=== PATIENT | female | born 1940 | race Caucasian/White ===

== ENCOUNTER → 2017-10-25 | Outpatient (CLI) | payer MEDICARE | END | disposition home or self-care (01) | LOC: US 12:25 | DX: I77.1 Stricture of artery (principal); I70.90 Unspecified atherosclerosis; E11.9 Type 2 diabetes mellitus without complications; I10 Essential (primary) hypertension; Z87.891 Personal history of nicotine dependence ==

== ENCOUNTER → 2019-02-06 | Outpatient (CLI) | payer MEDICARE ==
[~2019-02-06] MED LIST: ALEVE220 MG PO; ASPIR LOW81 MG PO; B12,B-12,B 12500 MC1 PO; CETIRIZINE10 MG PO; CIPRO500 MG PO; GLUCOPHAGE500 M1 PO; Glimepiride1 MG PO; HYDR25T PO; LOPERAMIDE HCL2 MG PO; METOPROLOL SUCC50 M1 PO; OMEPRAZOLE10 MG PO; ONDANSETRON4 M1 PO; POTASSIUM CHLO10 ME4 PO; SIMVASTATIN40 MG PO; SYMB160 INH; TOPROL XL25 MG PO; VENTOLIN,PR2 MG/5 ML PO; Vitamin D PO
== END | disposition home or self-care (01) ==
LOC: RESCLI 00:07
DX: Z09 Encounter for follow-up examination after completed treatment for conditions other than malignant neoplasm (principal); R91.8 Other nonspecific abnormal finding of lung field; E78.5 Hyperlipidemia, unspecified; J44.9 Chronic obstructive pulmonary disease, unspecified; K21.9 Gastro-esophageal reflux disease without esophagitis; I10 Essential (primary) hypertension; D53.9 Nutritional anemia, unspecified; E53.8 Deficiency of other specified B group vitamins; E55.9 Vitamin D deficiency, unspecified; E11.40 Type 2 diabetes mellitus with diabetic neuropathy, unspecified; J30.2 Other seasonal allergic rhinitis; G89.29 Other chronic pain; F17.200 Nicotine dependence, unspecified, uncomplicated; Z71.6 Tobacco abuse counseling; Z85.118 Personal history of other malignant neoplasm of bronchus and lung; Z76.89 Persons encountering health services in other specified circumstances; Z79.82 Long term (current) use of aspirin; Z79.899 Other long term (current) drug therapy; Z79.84 Long term (current) use of oral hypoglycemic drugs

== ENCOUNTER 2019-04-08 19:40 | Inpatient (IN) | payer MEDICARE ==
[~2019-04-08] VITALS: Ht 152.4 cm; Wt 42.8 kg
[2019-04-08] VITALS (10 sets, daily range): BP systolic 147–183; BP diastolic 79–120
--- NOTE | ~2019-04-08 | EKG ---
[place], [place] ELECTROCARDIOGRAM REPORT NAME: TAL GAVIN UNIT #: [id number] ROOM: 406 DOCTOR: RANCHO DRAFT REPORT BIRTHDATE: [birth year] [facility] Test Date: 2019-04-08 Test Time: 19:44:31 Pat Name: TAL GAVIN Department: Room: 406 Gender: F Fish Farm Laborer: : 1940 Requested By: SOLIS MIRZA Order Number: [id number] Reading MD: Thom Humphries Measurements Intervals [place] Rate: 116 P: 74 WV: 139 QRS: 41 QRSD: 107 T: 76 QT: 339 QTc: 471 Interpretive Statements Sinus tachycardia Probable left atrial enlargement Borderline T wave abnormalities Compared to ECG 03/09/2019 16:01:41 T-wave abnormality now present Atrial premature complex(es) no longer present ST (T wave) deviation no longer present Myocardial infarct finding no longer present Electronically Signed On 04-10-2019 12:05:23 PDT by Thom Humphries CM:EKGRPT:ELECTROCARDIOGRAM REPORT [id number] SOLIS TARANGO DRAFT REPORT SOLIS MIRZA DO
--- NOTE | ~2019-04-08 | EKG ---
[place], [place] ELECTROCARDIOGRAM REPORT NAME: TAL GAVIN UNIT #: [id number] ROOM: 406 DOCTOR: RANCHO DRAFT REPORT BIRTHDATE: [birth year] [facility] Test Date: 2019-04-09 Test Time: 01:32:37 Pat Name: TAL GAVIN Department: Room: 406 Gender: F Serology Teacher: Linn Ball : 1940 Requested By: SOLIS MIRZA Order Number: [id number] Reading MD: Thom Humphries Measurements Intervals [place] Rate: 98 P: 60 DC: 145 QRS: 20 QRSD: 72 T: 62 QT: 372 QTc: 476 Interpretive Statements Sinus rhythm Borderline T wave abnormalities Baseline wander in lead(s) V4 Compared to ECG 03/09/2019 16:01:41 T-wave abnormality now present Sinus tachycardia no longer present Atrial premature complex(es) no longer present ST (T wave) deviation no longer present Myocardial infarct finding no longer present Electronically Signed On 04-10-2019 12:08:22 PDT by Thom Humphries CM:EKGRPT:ELECTROCARDIOGRAM REPORT [id number] 1208 SOLIS TARANGO DRAFT REPORT SOLIS MIRZA DO
--- NOTE | ~2019-04-08 | EKG ---
[place], [place] ELECTROCARDIOGRAM REPORT NAME: TAL GAVIN UNIT #: [id number] ROOM: 406 DOCTOR: RANCHO DRAFT REPORT BIRTHDATE: [birth year] [facility] Test Date: 2019-04-08 Test Time: 21:52:12 Pat Name: TAL GAVIN Department: Room: 406 Gender: F Dairy Quality Assurance Officer: ANTHONY : 1940 Requested By: SOLIS MIRZA Order Number: [id number] Reading MD: Thom Humphries Measurements Intervals [place] Rate: 102 P: 63 VT: 144 QRS: 22 QRSD: 72 T: 66 QT: 357 QTc: 466 Interpretive Statements Sinus tachycardia Borderline T wave abnormalities Baseline wander in lead(s) I,III,aVL,aVF,V1,V2 Compared to ECG 03/09/2019 16:01:41 T-wave abnormality now present Atrial premature complex(es) no longer present ST (T wave) deviation no longer present Myocardial infarct finding no longer present Electronically Signed On 04-10-2019 12:07:54 PDT by Thom Humphries CM:EKGRPT:ELECTROCARDIOGRAM REPORT 1207 SOLIS TARANGO DRAFT REPORT SOLIS MIRZA DO
[2019-04-08 20:14] LABS: BASO # 0.1 10*3/uL (0.0-0.1); BASO % 0.7 % (0.0-1.0); HEMATOCRIT 39.3 % (37.0-47.0); HEMOGLOBIN 12.3 g/dl (12.0-16.0); LYMPH # 0.9 10*3/uL (1.3-4.4); LYMPH % 9.6 % (27.0-41.0); MEAN CELL VOLUME 95.4 fl (81.0-99.0); MEAN CORPUSCULAR HGB 29.9 pg (27.0-31.0); MEAN CORPUSCULAR HGB CONC 31.3 g/dl (33.0-37.0); MEAN PLATELET VOLUME 10.7 fl (9.6-12.3); MONO # 0.7 10*3/uL (0.1-1.0); MONO % 7.5 % (3.0-9.0); NEUT # 7.5 10*3/uL (2.3-7.9); NEUT % 81.7 % (47.0-73.0); PLATELET COUNT AUTOMATED 408 10*3/uL (130-400); RED BLOOD COUNT 4.12 10*6/uL (4.10-5.10); RED CELL DISTRI WIDTH 16.1 % (0-14.5); WHITE BLOOD COUNT 9.2 10*3/uL (4.8-10.8)
[2019-04-08 20:24] LABS: ACT PARTIAL THROMBO TIME 32.8 SECONDS (20.0-32.1); INTERNATIONAL NORM RATIO 1.1 (2.0-3.5)
[2019-04-08 20:43] LABS: ALBUMIN 2.9 gm/dl (3.1-4.5); CREATININE 1.38 mg/dL (0.55-1.02); POTASSIUM 4.4 mmol/L (3.5-5.1); TOTAL PROTEIN 7.9 gm/dL (6.4-8.2)
[2019-04-08 20:44] LABS: TROPONIN I 0.022 ng/ml (<0.045)
--- NOTE | 2019-04-08 22:21 | NUR ---
PT DENIES ANY OPEN WOUNDS OR SORES.
--- NOTE | 2019-04-08 22:37 | NUR ---
INFUSION OF MAGNESIUM SULFATE INITIATED @33.3ML/HR.
--- NOTE | 2019-04-08 23:14 | NUR ---
Time: 2313 A 79 year old F admitted to under services of CARLOS PRADHAN DO. Pt. arrived via stretcher from ER. Chief complaint: PNEUMONIA; HYPOMAGNESEMIA. CAROLYN DOWNEY
[2019-04-09] VITALS: BP 151/83
--- NOTE | 2019-04-09 00:27 | NUR ---
SITTING UP AT BEDSIDE LEAING OVER TRYING TO CATCH HER BREATH. 02 INTACT AT 2LPM VIA NASAL CANNULA. LUNGS WITH RHONCHI NOTED. CALLED DR. ROMERO TO SEE IF PATIENT COULD HAVE AN AEROSOL TX. & AN ORDER FOR MORPHINE OR SOMETHING FOR ANXIETY. DR. ROMERO TO LOOK AT PATIENT'S CHART & PUT ORDERS IN.
--- NOTE | 2019-04-09 01:30 | NUR ---
CALLED RESPIRATORY TO GIVE PATIENT AN AEROSOL TX.
--- NOTE | 2019-04-09 02:28 | NUR ---
RESTING IN BED WITH HOB ELEVATED. 02 INTACT AT 2LPM VIA NASAL CANNULA. CONDITION REMAINS POOR. CALL LIGHT WITHIN REACH.
--- NOTE | 2019-04-09 04:00 | NUR ---
ASLEEP IN ROOM WITH HOB ELEVATED. 02 INTACT. NO DISTRESS NOTED; CALL LIGHT WITHIN REACH.
[2019-04-09 06:29] LABS: HEMATOCRIT 40.6 % (37.0-47.0); HEMOGLOBIN 12.6 g/dl (12.0-16.0); MEAN CELL VOLUME 96.4 fl (81.0-99.0); MEAN CORPUSCULAR HGB 29.9 pg (27.0-31.0); MEAN PLATELET VOLUME 11.1 fl (9.6-12.3); PLATELET COUNT AUTOMATED 380 10*3/uL (130-400); RED BLOOD COUNT 4.21 10*6/uL (4.10-5.10); RED CELL DISTRI WIDTH 15.9 % (0-14.5); WHITE BLOOD COUNT 8.5 10*3/uL (4.8-10.8)
--- NOTE | 2019-04-09 06:30 | NUR ---
BLOOD SUGAR 194; PT. REFUSES COVERAGE STATING "I DO NOT TAKE INSULIN AT HOME."
[2019-04-09 06:50] LABS: ALBUMIN 2.8 gm/dl (3.1-4.5); CREATININE 1.26 mg/dL (0.55-1.02); PHOSPHOROUS 4.1 mg/dL (2.5-4.9); POTASSIUM 4.3 mmol/L (3.5-5.1); TOTAL PROTEIN 8.3 gm/dL (6.4-8.2)
[2019-04-09 06:58] LABS: THYROID STIM HORMONE (HS) 1.1 uIU/ml (0.358-4.75)
[2019-04-09 07:07] LABS: TOTAL CELLS COUNTED 100 #CELLS
[2019-04-09 07:08] LABS: PLATELET SUFFICIENCY NORMAL (NORMAL); POLYCHROMASIA SLIGHT
[2019-04-09 07:31] LABS: VITAMIN D, 25-HYDROXY 72.3 ng/mL (30-100)
[2019-04-09 08:00] VITALS: BP 151/75
--- NOTE | 2019-04-09 09:00 | NUR ---
Marble Cleaner in to talk to patient. Patient states lives at home with alone. There are few steps in the home. Physician: resident clinic Pharmacy: [facility] [place] health services: none Patient's level of ADLs: INDEPENDENT Patient has working utilities: all working DME: cane, walker, nebulizer Follow-up physician's appointment after d/c: will be made by hospitalist nurse director upon discharge Does patient want to access PORTAL?: no Discharge plan discussed with patient, she states she lives at home alone, she is independent in adls and ambulation, she states she will be returning home when able and denies any home needs. ANAMARIA MARTINEZ
[2019-04-09 12:00] VITALS: BP 122/64
[2019-04-09 16:00] VITALS: BP 128/82; BP 129/74
[2019-04-09 20:00] VITALS: BP 149/79
[2019-04-10] VITALS: BP 121/70
[2019-04-10 05:59] LABS: CREATININE 1.5 mg/dL (0.55-1.02); POTASSIUM 5.1 mmol/L (3.5-5.1)
[2019-04-10 08:00] VITALS: BP 148/73
--- NOTE | 2019-04-10 09:00 | NUR ---
case management visits with patient, patient states she will return home and denies any home needs
[2019-04-10 12:00] VITALS: BP 137/72
[2019-04-10] MEDS ORDERED: PREDNISONE50 MG PO (12:45)
[2019-04-10] MEDS ORDERED: VIBRAMYCIN100 MG PO (12:45)
--- NOTE | 2019-04-10 12:59 | NUR ---
[facility] Discharge instructions reviewed with patient/family. Patient receptive and verbalizes understanding. Follow-up care arranged. Written instructions given to patient/family. DEEPAK LAWSON
== END 2019-04-10 12:59 | disposition home or self-care (01) | DRG 871 ==
LOC: ED 19:40 → 4E 21:58 → EDHOLD 21:58 → 4E 22:30
PROVIDERS: Emergency Medicine; Student in an Organized Health Care Education/Training Program; ADMIT Internal Medicine
DX: A41.9 Sepsis, unspecified organism (principal); J18.9 Pneumonia, unspecified organism; N17.0 Acute kidney failure with tubular necrosis; E43 Unspecified severe protein-calorie malnutrition; Z68.1 Body mass index [BMI] 19.9 or less, adult; R65.20 Severe sepsis without septic shock; E83.42 Hypomagnesemia; E83.51 Hypocalcemia; E11.65 Type 2 diabetes mellitus with hyperglycemia; D47.3 Essential (hemorrhagic) thrombocythemia; K21.9 Gastro-esophageal reflux disease without esophagitis; I10 Essential (primary) hypertension; F17.210 Nicotine dependence, cigarettes, uncomplicated; J44.9 Chronic obstructive pulmonary disease, unspecified; Z88.9 Allergy status to unspecified drugs, medicaments and biological substances; Z71.6 Tobacco abuse counseling; Z90.49 Acquired absence of other specified parts of digestive tract; Z90.710 Acquired absence of both cervix and uterus; Z82.49 Family history of ischemic heart disease and other diseases of the circulatory system; Z83.3 Family history of diabetes mellitus; Z81.8 Family history of other mental and behavioral disorders; Z79.84 Long term (current) use of oral hypoglycemic drugs

== ENCOUNTER 2019-04-21 12:32 | Emergency (ER) | payer MEDICARE ==
[~2019-04-21] VITALS: Wt 43.5 kg
[~2019-04-21 12:32] MED LIST changes: -FUROSEMIDE20 M1 PO; -XANAX0.5 MG PO
== END 2019-04-21 14:52 | disposition home or self-care (01) ==
LOC: ED 12:32
DX: I82.412 Acute embolism and thrombosis of left femoral vein (principal); J44.9 Chronic obstructive pulmonary disease, unspecified; I10 Essential (primary) hypertension; K21.9 Gastro-esophageal reflux disease without esophagitis; E11.9 Type 2 diabetes mellitus without complications; E78.00 Pure hypercholesterolemia, unspecified; F17.200 Nicotine dependence, unspecified, uncomplicated; Z79.899 Other long term (current) drug therapy; Z79.82 Long term (current) use of aspirin

== ENCOUNTER → 2019-04-21 | Outpatient (CLI) | payer MEDICARE ==
[~2019-04-21] MED LIST changes: +FUROSEMIDE20 M1 PO; +PREDNISONE50 MG PO; +VIBRAMYCIN100 MG PO; +XANAX0.5 MG PO
[2019-04-21 11:59] LABS: BASO % 0.1 % (0.0-1.0); HEMATOCRIT 40.7 % (37.0-47.0); LYMPH # 0.7 10*3/uL (1.3-4.4); LYMPH % 4.3 % (27.0-41.0); MEAN CELL VOLUME 92.3 fl (81.0-99.0); MEAN CORPUSCULAR HGB 29.5 pg (27.0-31.0); MEAN CORPUSCULAR HGB CONC 31.9 g/dl (33.0-37.0); MEAN PLATELET VOLUME 12.1 fl (9.6-12.3); MONO # 0.9 10*3/uL (0.1-1.0); NEUT # 13.7 10*3/uL (2.3-7.9); NEUT % 88.8 % (47.0-73.0); PLATELET COUNT AUTOMATED 304 10*3/uL (130-400); RED BLOOD COUNT 4.41 10*6/uL (4.10-5.10); RED CELL DISTRI WIDTH 16.9 % (0-14.5); WHITE BLOOD COUNT 15.4 10*3/uL (4.8-10.8)
[2019-04-21 12:16] LABS: ALBUMIN 2.5 gm/dl (3.1-4.5); CREATININE 1.49 mg/dL (0.55-1.02); POTASSIUM 4.8 mmol/L (3.5-5.1); TOTAL PROTEIN 7.7 gm/dL (6.4-8.2)
[2019-04-21 12:33] LABS: BILIRUBIN NEGATIVE (NEGATIVE); BLOOD NEGATIVE (NEGATIVE); CLARITY CLEAR (CLEAR); COLOR YELLOW (YELLOW); GLUCOSE NEGATIVE (NEGATIVE); KETONE NEGATIVE (NEGATIVE); LEUKO ESTERASE NEGATIVE (NEGATIVE); NITRITE NEGATIVE (NEGATIVE); PH 5.5 (5.0-9.0); SPECIFIC GRAVITY 1.025 (1.005-1.030); UROBILINOGEN 0.2 E.U./dl (0.2-1.0)
== END | disposition home or self-care (01) ==
LOC: RESCLI 01:40
PROVIDERS: Internal Medicine; Student in an Organized Health Care Education/Training Program
DX: Z09 Encounter for follow-up examination after completed treatment for conditions other than malignant neoplasm (principal); R10.30 Lower abdominal pain, unspecified; J18.1 Lobar pneumonia, unspecified organism; E11.40 Type 2 diabetes mellitus with diabetic neuropathy, unspecified; K21.9 Gastro-esophageal reflux disease without esophagitis; G89.29 Other chronic pain; E78.5 Hyperlipidemia, unspecified; I10 Essential (primary) hypertension; E55.9 Vitamin D deficiency, unspecified; J45.909 Unspecified asthma, uncomplicated; D53.9 Nutritional anemia, unspecified; J44.9 Chronic obstructive pulmonary disease, unspecified; R60.0 Localized edema; R00.0 Tachycardia, unspecified; R06.02 Shortness of breath; C34.81 Malignant neoplasm of overlapping sites of right bronchus and lung; Z72.0 Tobacco use; Z79.899 Other long term (current) drug therapy

== ENCOUNTER → 2019-04-24 | Outpatient (CLI) | payer MEDICARE ==
[~2019-04-24] MED LIST changes: +FUROSEMIDE20 M1 PO; +XANAX0.5 MG PO
== END | disposition home or self-care (01) ==
LOC: RESCLI 00:27
DX: I82.412 Acute embolism and thrombosis of left femoral vein (principal); E11.40 Type 2 diabetes mellitus with diabetic neuropathy, unspecified; J30.2 Other seasonal allergic rhinitis; K21.9 Gastro-esophageal reflux disease without esophagitis; E78.5 Hyperlipidemia, unspecified; I10 Essential (primary) hypertension; D53.9 Nutritional anemia, unspecified; J44.9 Chronic obstructive pulmonary disease, unspecified; Z79.899 Other long term (current) drug therapy; Z88.8 Allergy status to other drugs, medicaments and biological substances

== ENCOUNTER → 2019-05-05 | Outpatient (CLI) | payer MEDICARE | END | disposition home or self-care (01) | LOC: RESCLI 09:27 | DX: M79.89 Other specified soft tissue disorders (principal); I82.412 Acute embolism and thrombosis of left femoral vein; E11.40 Type 2 diabetes mellitus with diabetic neuropathy, unspecified; J30.2 Other seasonal allergic rhinitis; K21.9 Gastro-esophageal reflux disease without esophagitis; E78.5 Hyperlipidemia, unspecified; I10 Essential (primary) hypertension; D53.9 Nutritional anemia, unspecified; J44.9 Chronic obstructive pulmonary disease, unspecified; Z79.899 Other long term (current) drug therapy; Z88.8 Allergy status to other drugs, medicaments and biological substances ==

== ENCOUNTER → 2019-05-08 | Outpatient (CLI) | payer MEDICARE ==
[2019-05-08 12:52] LABS: CREATININE 1.28 mg/dL (0.55-1.02); POTASSIUM 4.3 mmol/L (3.5-5.1)
== END | disposition home or self-care (01) ==
LOC: LAB 12:12
PROVIDERS: Student in an Organized Health Care Education/Training Program
DX: M79.89 Other specified soft tissue disorders (principal)

== ENCOUNTER 2019-05-09 22:39 | Inpatient (IN) | payer MEDICARE ==
[~2019-05-09] VITALS: Ht 124.4 cm; Wt 44.9 kg
--- NOTE | ~2019-05-09 | EKG ---
[place], [place] ELECTROCARDIOGRAM REPORT NAME: TAL GAVIN UNIT #: [id number] ROOM: 523 DOCTOR: EPIPHANY DRAFT REPORT BIRTHDATE: [birth year] [facility] Test Date: 2019-05-09 Test Time: 22:40:03 Pat Name: TAL GAVIN Department: Room: 523 Gender: F Conservation Agent: Linn Ball : 1940 Requested By: AHMET CHOWDARY Order Number: [id number] Reading MD: Maria T Gallegos MD Measurements Intervals [place] Rate: 129 P: 51 IA: 138 QRS: 57 QRSD: 64 T: QT: 282 QTc: 414 Interpretive Statements Sinus tachycardia Nonspecific T abnrm, anterolateral leads Compared to ECG 04/09/2019 01:32:37 Sinus rhythm no longer present T-wave abnormality no longer present Electronically Signed On 05-10-2019 13:34:19 PDT by Maria T Gallegos MD CM:EKGRPT:ELECTROCARDIOGRAM REPORT 1334 AHMET CHOWDARY MD EPIPHANY DRAFT REPORT AHMET CHOWDARY MD
--- NOTE | ~2019-05-09 | CON ---
[place], [place] REPORT OF CONSULTATION NAME: TAL GAVIN UNIT #: [id number] ROOM: 523 DOCTOR: ROXANN ARCE MD BIRTHDATE: [birth year] DOS: 05/10/2019 PULMONARY CONSULTATION, EVALUATION AND MANAGEMENT CONSULTATION REQUESTED BY: Hospitalist service. REASON FOR CONSULTATION: For assessment of postobstructive pneumonia. HISTORY OF PRESENT ILLNESS: This is a 79-year-old white female patient, unknown to me. The patient has been admitted to the hospital for the care of acute pneumonia symptoms, shortness of breath, general weakness and fatigue. The history was obtained mainly from the patient's daughter present in room with the patient who assisted with the history. The patient was not giving much history at this time of assessment. This is a patient recorded as a 79-year-old white female patient who has been diagnosed with cancer of the lung per daughter. The patient treated with radiation therapy a couple of years ago. She has been managed by [facility] at [place], [place]. She has been monitored and managed by the parish visitor in [place], [place] as well for the respiratory problem. She has been known with history of COPD. She has been noted with increased symptoms of shortness of breath occurring at home, which has been noted with gradual worsening. The shortness of breath later on progressed with respiratory distress. She has been given nebulized bronchodilators at home setting, which was noted ineffective to resolve the respiratory distress and shortness of breath. She has been brought to the hospital, noted with severe oxygen desaturation and we treated with high flow oxygen supplementation nonrebreather mask. Code status of the patient has been reported comfort care. This morning as the patient was seen in her room, she was using oxygen supplementation noted with mild tachypnea, but noted to be awake. There was no cough for the patient noted during her assessment of chest congestion. REVIEW OF SYSTEMS: Cannot be effectively completed because of inability to have verbal conversation and answering those questions. PAST MEDICAL HISTORY: 1. COPD. 2. Chronic hypoxic respiratory failure. 3. History of right lung cancer treated with radiation therapy as well with the recurrence of cancer noted recently for the patient as per daughter. 4. Chronic nicotine dependence. 5. Gastroesophageal reflux. 6. Essential hypertension. 7. Type 2 diabetes mellitus. 8. Incontinence of the urine and the bowel was also reported. 9. Progressive weight loss, most likely related to the underlying malignancy and lung cancer. PAST SURGICAL HISTORY: 1. Cholecystectomy. 2. Hysterectomy. Unable to find how the diagnosis of lung cancer was established by the patient and family members. [place], [place] REPORT OF CONSULTATION NAME: TAL GAVIN UNIT #: [id number] ROOM: 523 DOCTOR: ROXANN ARCE MD BIRTHDATE: [birth year] SOCIAL HISTORY: Reported as chronic nicotine dependence from the age of [age] years old, actively smoking cigarettes until this hospitalization. There is no history of alcohol use or illicit drug use were stated. The patient is currently . FAMILY HISTORY: The patient was reported as father at age 7070 years old with complication of myocardial infarction. Mother at 70 plus years old from complication related to diabetes and Alzheimer's dementia. HOME MEDICATIONS: 1. Albuterol sulfate tablet 2 mg p.o. b.i.d. 2. Xanax 0.5 mg t.i.d. 3. Symbicort 160/4.5 two puffs b.i.d. 4. Lasix 20 mg p.o. daily. 5. Metformin 1000 mg p.o. b.i.d. 6. Albuterol sulfate nebulizer 2.5 mg q.i.d. p.r.n. for shortness of breath. 7. Omeprazole 20 mg daily. 8. Potassium chloride 20 mEq p.o. daily. CURRENT MEDICATIONS: Which were administered on this hospitalization were recorded as a DuoNeb, morphine, IV Zosyn, Solu-Medrol, Xanax and some other meds. DRUG ALLERGIES: ALLERGY TO IODINE. PHYSICAL EXAMINATION: GENERAL: A 79-year-old female patient who has been noted currently awake and alert. Height was recorded as 4 feet 11 inches by the nursing staff, weight of 99 pounds, BMI of 29. VITAL SIGNS: For the patient which were currently noted normal temperature, respiratory rate of 22, heart rate of 132-104, sinus tachycardia, blood pressure 104/77 to 159/86. Pulse oxygen saturation recorded 100% nonrebreather mask 94% with high flow oxygen supplementation nasal cannula as 98% saturation presently, previous the BiPAP setting of 14/6 with 95% saturation. HEENT: Head was atraumatic. Eyes nonicterus. Oral mucosa was dry. NECK: Supple. CARDIOVASCULAR: S1, S2 is audible. LUNGS: Noted with essentially decreased generalized breath sounds in the lungs bilaterally, greater on the right than the left side. There were no wheezing heard. ABDOMEN: Soft, nontender. Bowel sounds present. EXTREMITIES: No acute change. LABORATORY DATA: CMP yesterday, glucose 242, BUN 22, creatinine 1.45. Arterial blood gas in the evening of 05/09/2019, pH of 7.30, pCO2 of 44, pO2 90.5 with 35% oxygen and lactic acid 2.8 noted early this morning. The CMP that was done this morning, BUN 26, creatinine 1.56, glucose 283. Mildly abnormal LFTs. The PT/INR was noted at 1.5 today as well. CBC this morning: WBC count normal, hemoglobin 10.8, platelet count 515,000. Chest x-ray shows atelectasis, mass [place], [place] REPORT OF CONSULTATION NAME: TAL GAVIN UNIT #: [id number] ROOM: 523 DOCTOR: DEJA CALI MD,[facility] BIRTHDATE: [birth year] lesion occupying the right upper lobe with volume loss with elevation of right hemidiaphragm was noted. There was no acute infiltration or other abnormalities noted on the chest x-ray. CT scan of the chest on 01/14/2019 were reviewed for the patient, independent PACS images noted with area of atelectasis. The patient's right upper lobe with air bronchogram with bronchial obstruction and area of consolidation was also noted and patchy infiltration also noted in the right lower lobe at that time. IMPRESSION: 1. The patient will be currently admitted to the hospital, noted progression of lung malignancy, possibility of postobstructive pneumonia and acute on chronic severe hypoxic respiratory failure. 2. Metabolic acidosis secondary to acute kidney injury as well as lactic acidosis secondary to acute infection as well. 3. Chronic continued nicotine dependence was noted as well. PLAN OF CARE: The patient will be continued on antibiotics, bronchodilators, other medications as long as agreed upon by the family members. Bronchodilator to help mobilize secretions. Oxygen supplementation to titrate pulse ox 92% or greater. Use of BiPAP for respiratory support and tachypnea could be used. She was also noted tachycardia, multifactorial that needs to be treated symptomatically, pain management. The patient's family members have told me that they have discussed the option of the hospice care for this patent with they were agreeing upon that and hospitalist services certainly could be arranged for the patient in the next 24 hours for the home discharge. Prognosis of the patient is poor at the present time with current ongoing multiple medical illnesses with COPD, chronic O2 dependent and current progression of the lung malignancy. I would not suggest any further invasive procedures at this time as the patient's family member wishes. Symptomatic management to be continued. Usual care, other therapy, plan of management. DVT prophylaxis could be given if agreed upon by the family members with the form of the Lovenox. Thanks for allowing me to participate in the care of this patient. ROXANN SHORT MD CM:CONSTR:REPORT OF CONSULTATION 1510 05/11/19 [id number] interface
[~2019-05-09 22:39] MED LIST changes: -FUROSEMIDE20 M1 PO; -XANAX0.5 MG PO
[2019-05-09 22:48] VITALS: BP 165/92
[2019-05-09 23:02] LABS: BASO # 0.1 10*3/uL (0.0-0.1); BASO % 0.6 % (0.0-1.0); EOS # 0.4 10*3/uL (0.0-0.4); EOS % 4.7 % (1.0-4.0); LYMPH # 1.3 10*3/uL (1.3-4.4); LYMPH % 16.8 % (27.0-41.0); MEAN CORPUSCULAR HGB 28.7 pg (27.0-31.0); MEAN CORPUSCULAR HGB CONC 30.6 g/dl (33.0-37.0); MEAN PLATELET VOLUME 10.5 fl (9.6-12.3); MONO # 0.8 10*3/uL (0.1-1.0); MONO % 9.6 % (3.0-9.0); NEUT # 5.4 10*3/uL (2.3-7.9); NEUT % 67.7 % (47.0-73.0); PLATELET COUNT AUTOMATED 444 10*3/uL (130-400); RED BLOOD COUNT 3.83 10*6/uL (4.10-5.10); RED CELL DISTRI WIDTH 17.6 % (0-14.5); WHITE BLOOD COUNT 7.9 10*3/uL (4.8-10.8)
[2019-05-09 23:13] LABS: ACT PARTIAL THROMBO TIME 47.7 SECONDS (20.0-32.1); INTERNATIONAL NORM RATIO 1.6 (2.0-3.5)
--- NOTE | 2019-05-09 23:13 | NUR ---
PLACED ON BIPAP 14/6, RR28, 35% O2. vt 400, PATIENT IS RESTING COMFORTABLY.
[2019-05-09 23:18] LABS: ALBUMIN 2.3 gm/dl (3.1-4.5); CREATININE 1.45 mg/dL (0.55-1.02); POTASSIUM 4.2 mmol/L (3.5-5.1); TOTAL PROTEIN 7.4 gm/dL (6.4-8.2)
[2019-05-09 23:19] LABS: TROPONIN I 0.025 ng/ml (<0.045)
[2019-05-09 23:39] VITALS: BP 159/86
[2019-05-09 23:40] LABS: ABG BASE EXCESS -4.3 mmol/L (-2.0-2.0); ABG HCO3 21.5 mmol/l (22-26); ABG O2 SATURATION 96.2 % (95-97); ARTERIAL BLOOD GAS PCO2 44.1 mmHg (35-45); ARTERIAL BLOOD GAS PH 7.306 (7.35-7.45); ARTERIAL BLOOD GAS PO2 90.5 mmHg (80-90)
--- NOTE | 2019-05-09 23:40 | NUR ---
PT RESTING IN BED FAMILY IN ROOM DENIES ANY PAIN AT THIS TIME BREATHING HAS GOTTEN A LITTLE BETTER PER PT DR SANDOVAL IN ROOM TALKING WITH FAMILY.
--- NOTE | 2019-05-10 00:27 | NUR ---
pt having a hard time with bipap wants to try nasal canula dr hicks notified and is ok with this rrespiratory was notified
[2019-05-10 00:29] VITALS: BP 165/96
--- NOTE | 2019-05-10 00:38 | NUR ---
Patient taken off of NIV to 4LNC. SPO2: 96% Pt states that "she is breathing better already"
[2019-05-10 00:50] VITALS: BP 148/74
--- NOTE | 2019-05-10 00:59 | NUR ---
PULSE OX CAME DOWN TO 88% PT PLACED ON NON REBREATHER @15L PULSE OX UP TO 98% RESPIRATORY WAS CALLED TO COME BACK TO CHECK ON PT.
--- NOTE | 2019-05-10 01:07 | NUR ---
PT PLACED ON NC @10 BY RESPIRATORY PT TOLERATING WELL AT THIS TIME WILL MONITOR
--- NOTE | 2019-05-10 01:07 | NUR ---
PT PLACED ON NC @10 BY RESPIRATORY PT TOLERATI NG AT THIS TIME.
--- NOTE | 2019-05-10 01:24 | NUR ---
DR SANDOVAL IN TO SPEAK WITH FAMILY PT IS NOW DNRCC AND IS GOING TO CONSULT HOSPICE IN THE MORNING.
--- NOTE | 2019-05-10 01:27 | NUR ---
PROSPER GARCIA SENT TO FLOOR WITH PT
--- NOTE | 2019-05-10 01:28 | NUR ---
NOTIFIED DR MENDEZ OF PT CRITICAL LACTIC ACID LEVEL OF 2.8. NO NEW ORDERS RECEIVED AT THIS TIME.
[2019-05-10 01:35] VITALS: BP 146/94
--- NOTE | 2019-05-10 01:35 | NUR ---
A 79, admitted to , under the services of MEHUL Ibarra DO with a diagnosis of POSTOBSTRUCTIVE PNEUMONIA,RESPIRATORY FAILURE,HYPOALBUMINEMIA,CARCINOMA OF LUNG. Chief complaint is SHORTNESS OF BREATH. Patient arrived via bed from ER. Monitor applied. Initial assessment completed. Vital signs taken and recorded. MEHUL IBARRA DO notified of admission to the unit. Orders received. See assessment for past medical history, medications and allergies. Patient and/or family oriented to unit. [facility] visitation policy reviewed. Clothing/patient valuable form completed. COLEMAN FRANCOIS
--- NOTE | 2019-05-10 02:30 | NUR ---
SPOKE WITH [facility]AL [facility]Y PHARMACIST REGARDING PATIENT ANTIBIOTICS AND THE TIMES THAT THEY ARE ADMINISTERED. PHARMACIST MADE AWARE THAT ANTIBIOTICS WILL BE ADMINISTERED LATER THAN PROFILED. NO NEW ORDERS RECEIVED AT THIS TIME, NO CONCERNS VOICED BY PHARMACIST REGARDING THE TIMES OF ANTIBIOTIC ADMINISTRATION.
--- NOTE | 2019-05-10 02:45 | NUR ---
WOUND CARE ORDERS OBTAINED FROM DR MENDEZ FOR SKIN TEAR TO RFA.
--- NOTE | 2019-05-10 02:50 | NUR ---
NOTIFIED RESPIRATORY THAT PT IS SITTING UP ON SIDE OF BED, C/O SOB ON 15L HIGH FLOW NC. RESPIRATORY STATES THAT THEY WILL BE UP TO FLOOR. PT POX IS CURRENTLY 93%. PT ADVISED TO BREATHE IN THROUGH NOSE, OUT THROUGH MOUTH, WHICH SHE REPLIES THAT SHE CANNOT DO RIGHT NOW. WILL STAY WITH PT UNTIL RESPIRATORY ARRIVES.
[2019-05-10] MEDS ORDERED: FUROSEMIDE20 M1 PO (02:54)
[2019-05-10] MEDS ORDERED: XANAX0.5 MG PO (02:55)
--- NOTE | 2019-05-10 03:00 | NUR ---
FAMILY MADE AWARE OF DR SHORT CONSULT AND REFUSE TO ALLOW PATIENT TO SEE PHYSICIAN. DR MENDEZ NOTIFIED.
--- NOTE | 2019-05-10 03:00 | NUR ---
NOTIIFIED DR MENDEZ THAT PT MED REC IS UP TO DATE PER BOTTLES PROVIDED BY FAMILY. ALSO NOTIFIED PHYSICIAN THAT PT HAS INCREASED ANXIETY. ORDERS GIVEN TO CONTINUE XANAX 0.5 MG ORDER AND TO ADMINISTER TO PATIENT. PHYSICIAN ALSO NOTIFIED THAT FAMILY IS REFUSING CONSULT WITH DR SHORT.
--- NOTE | 2019-05-10 03:31 | NUR ---
PT GIVEN XANAX 0.5 MG PO AT THIS TIME FOR S/S OF ANXIETY. WILL MONITOR. HOB ELEVATED. NONREBREATHER IN TACT. POX 95%. CALL LIGHT IN REACH.
--- NOTE | 2019-05-10 03:40 | NUR ---
DR. MENDEZ CALLED WITH LACTIC ACID RESULT OF 3.0; NO NEW ORDERS RECEIVED.
--- NOTE | 2019-05-10 06:11 | NUR ---
NOTIFIED DR MENDEZ THAT PT LACTIC ACID 2.5, TROPONIN IS 0.164, NO NEW ORDERS RECEIVED AT THIS TIME. WILL CONTINUE TO MONITOR PT.
--- NOTE | 2019-05-10 06:42 | NUR ---
PT RESTING IN BED AT THIS TIME. SUPPLEMENTAL OXYGEN IN PLACE VIA NONREBREATHER MASK. PT SLEEPING, NO S/S OF DISTRESS NOTED. POX 99%. RESPIRATIONS 20. IV ANTIBIOTICS INFUSING PER ORDERS. SAFETY MEASURES IN PLACE. CALL LIGHT IN REACH.
[2019-05-10 06:49] LABS: INTERNATIONAL NORM RATIO 1.5 (2.0-3.5)
[2019-05-10 07:01] LABS: HEMATOCRIT 36.5 % (37.0-47.0); HEMOGLOBIN 10.8 g/dl (12.0-16.0); MEAN CELL VOLUME 96.8 fl (81.0-99.0); MEAN CORPUSCULAR HGB 28.6 pg (27.0-31.0); MEAN CORPUSCULAR HGB CONC 29.6 g/dl (33.0-37.0); NUCLEATED RED BLOOD CELL 0.2 % (0.0-0.0); PLATELET COUNT AUTOMATED 515 10*3/uL (130-400); RED BLOOD COUNT 3.77 10*6/uL (4.10-5.10); RED CELL DISTRI WIDTH 17.5 % (0-14.5); WHITE BLOOD COUNT 9.8 10*3/uL (4.8-10.8)
[2019-05-10 07:12] LABS: ALBUMIN 2.4 gm/dl (3.1-4.5); CREATININE 1.56 mg/dL (0.55-1.02); PHOSPHOROUS 4.4 mg/dL (2.5-4.9); POTASSIUM 4.7 mmol/L (3.5-5.1); TOTAL PROTEIN 7.6 gm/dL (6.4-8.2)
[2019-05-10 07:38] LABS: BURR CELLS FEW; PLATELET SUFFICIENCY HIGH (NORMAL); POLYCHROMASIA SLIGHT; SCHISTOCYTES FEW; TOTAL CELLS COUNTED 100 #CELLS
[2019-05-10 08:00] VITALS: BP 107/73
[2019-05-10 12:00] VITALS: BP 104/65
--- NOTE | 2019-05-10 15:56 | NUR ---
Discharge instructions reviewed with patient/family. Patient receptive and verbalizes understanding. HOSPICE care arranged. Written instructions given to patient/family. GALLO ALANIS
--- NOTE | 2019-05-10 16:01 | NUR ---
Time: 1600 A 79 year old FEMALE admitted to [facility]. GALLO ALANIS
== END 2019-05-10 15:56 | disposition hospice, home (50) | DRG 871 ==
LOC: ED 22:39 → EDHOLD 05-10 00:39 → 5E 05-10 00:53
PROVIDERS: Emergency Medicine Emergency Medical Services; Student in an Organized Health Care Education/Training Program; ADMIT Internal Medicine
PROC: 5A09357 Assistance with Respiratory Ventilation, Less than 24 Consecutive Hours, Continuous Positive Airway Pressure (ICD-10-PCS; principal; 2019-05-10)
DX: A41.9 Sepsis, unspecified organism (principal); J18.9 Pneumonia, unspecified organism; J96.21 Acute and chronic respiratory failure with hypoxia; N17.0 Acute kidney failure with tubular necrosis; E43 Unspecified severe protein-calorie malnutrition; C34.91 Malignant neoplasm of unspecified part of right bronchus or lung; J44.1 Chronic obstructive pulmonary disease with (acute) exacerbation; J44.0 Chronic obstructive pulmonary disease with (acute) lower respiratory infection; E87.2 Acidosis; E88.09 Other disorders of plasma-protein metabolism, not elsewhere classified; R65.20 Severe sepsis without septic shock; F17.210 Nicotine dependence, cigarettes, uncomplicated; I10 Essential (primary) hypertension; K21.9 Gastro-esophageal reflux disease without esophagitis; E83.42 Hypomagnesemia; Z66 Do not resuscitate; Z51.5 Encounter for palliative care; D64.9 Anemia, unspecified; E11.65 Type 2 diabetes mellitus with hyperglycemia; Z79.4 Long term (current) use of insulin; Z71.6 Tobacco abuse counseling; Z90.49 Acquired absence of other specified parts of digestive tract; Z90.710 Acquired absence of both cervix and uterus; Z91.041 Radiographic dye allergy status; Z82.0 Family history of epilepsy and other diseases of the nervous system; Z79.84 Long term (current) use of oral hypoglycemic drugs; Z79.899 Other long term (current) drug therapy

== ENCOUNTER 2019-05-10 16:22 | Inpatient (IN) | payer OTHER, MEDICARE ==
[~2019-05-10] VITALS: Ht 124.4 cm; Wt 44.9 kg
[2019-05-10 16:00] VITALS: BP 115/80
[~2019-05-10 16:22] MED LIST changes: +FUROSEMIDE20 M1 PO; +XANAX0.5 MG PO
[2019-05-10 20:00] VITALS: BP 107/79
--- NOTE | 2019-05-10 21:10 | NUR ---
PT TOOK ORAL ATIVAN WITHOUT ISSUE. COLD WATER PROVIDED. HOB LEFT ELEVATED. DAUGHTER AT BEDSIDE. WILL MONITOR. CALL LIGHT IN REACH.
--- NOTE | 2019-05-10 21:20 | NUR ---
ANDRADE DAVE FROM [facility], HERE TO SEE PT. DISCUSSED HOSPICE RECOMMENDATIONS & CURRENT MEDICATION ORDERS. WILL NOTIFY DR OF RECOMMENDATIONS.
--- NOTE | 2019-05-10 22:52 | NUR ---
MADE AWARE OF HOSPICE RECOMMENDATIONS. OKAY TO CHANGE ORDERS TO REFLECT RECOMMENDATIONS PER .
--- NOTE | 2019-05-11 00:28 | NUR ---
PT STATES SHE DOES NOT NEED 0000 DOSE OF MORPHINE & ATIVAN. HELD AT THIS TIME. PT & FAMILY EDUCATED ABOUT PRN DOSE AVAILABLE. BOTH VERBALIZES UNDERSTANDING.
[2019-05-11 02:25] VITALS: BP 117/77
--- NOTE | 2019-05-11 02:30 | NUR ---
PT SLOUCHED DOWN IN BED. PATIENT PULLED UP AND REPOSITIONED FOR COMFORT. PT VERY SOB WITH ANY MOVEMENT. RR 26 AT THIS TIME AND POX 90% ON 3L. RN OFFERED PT PRN ATIVAN/MORPHINE TO HELP WITH ANXIETY/PAIN. PT AGREES AT THIS TIME. WILL MONITOR. DAUGHTER AT BEDSIDE. PT LEFT WITH BED LOCKED IN LOW POSITION, BED ALARM INTACT, CALL LIGHT IN REACH. DAUGHTER AND PT REQUESTING ALL 4 SIDERAILS BE PUT UP SO PT WON'T ROLL OUT OF BED. DONE PER PT/FAMILY REQUEST.
--- NOTE | 2019-05-11 05:19 | NUR ---
TAL GAVIN [id number] Please refer to the physician's history and physical for past medical history, comorbid conditions, and allergies. Diagnosis: RESP FAILURE,LUNG CA Al[place] Score: , WOUND DESCRIPTIONS: Wound Number: 1 Location of the wound: right elbow Type of wound: skin tear Thickness: Partial Size: 0.9cm x 0.3cm x 0.1cm Tunneling: none Undermining: none Sinus Tract: none Presence of Exudate: Serosanguineous Amount: Light Color: Red Odor: None Periwound Skin Appearance: Normal Wound edges: approximated Pain (associated with wound): none at time of assessment How does patient state this happened? pt unable to state how this happened Surface the patient is resting on: Isoflex SKIN PREVENTION RECOMMENDATION: 1. Pressure redistribution support surface as appropriate 2. Elevate heels 3. Remove boots/TEDS every shift and reapply 4. Head of bed 30 degrees as tolerated 5. Assess nutrition and hydration 6. Manage moisture 7. Avoid the use of containment devices while in bed 8. Use absorptive products on surfaces limit layers of linens on bed 9. Turn and reposition every 1-2 hours in bed and every 1 hour in chair as tolerated 10. Weight shifts every 15 minutes while up in chair 11. Offloading with pillows or device to keep heels elevated off bed 12. Monitor skin at least every shift 13. Inspect under medical devices twice a day WOUND TREATMENT RECOMMENDATIONS: Continue skin tear guidelines: Cleanse right elbow with nss and apply sureprep around wound therahoney to wound bed and cover with optifoam gentle every 2 days and prn.
--- NOTE | 2019-05-11 07:15 | NUR ---
TOOK OVER CARE OF PATIENT AT THIS TIME. BEDSIDE REPORT RECEIVED. PATIENT RESTING IN BED WITH EYES CLOSED. RESPIRATIONS 22 ON 2L SUPPLEMENTAL OXYGEN AT 2L VIA NC. PULSE OX 94%. PT OPENS EYES TO VERBAL STIMULI AND IS GIVEN A DRINK OF WATER. PT STATES THAT SHE IS COMFORTABLE AT THIS TIME. VITALS WNL. WILL CONTINUE TO MONITOR. FAMILY AT BEDSIDE, SAFETY MEASURES IN PLACE. CALL LIGHT IN REACH.
[2019-05-11 08:00] VITALS: BP 96/70
--- NOTE | 2019-05-11 09:27 | NUR ---
NEW ORDERS RECEIVED FROM PERNELL JOHNSON NP. PATIENT TO HAVE 5 MG MORPHINE SL X 1 NOW DUE TO AIR HUNGER. WILL MEDICATE WHEN AVAILABLE TO PULL.
--- NOTE | 2019-05-11 09:51 | NUR ---
MORPHINE 5MG GIVEN PO SUBLINGUALLY AT THIS TIME. RESPIRATIONS 24. PT NOT OPENING EYES TO VERBAL OR TACTILE STUMULATION AT THIS TIME. WILL MONITOR FOR EFFECTIVENESS OF MEDICATION. FAMILY AT BEDSIDE. CALL LIGHT IN REACH.
--- NOTE | 2019-05-11 10:50 | NUR ---
SPOKE WITH HOSPICE NURSE REGARDING PATIENT CARE AND RECOMMENDATIONS GIVEN TO THIS NURSE AT THIS TIME FOR APPROPRIATE MEDS FOR COMFORT AND ATROPINE FOR SECRETIONS. HOSPICE NURSE AND THIS NURSE REVIEW EMAR TOGETHER AND DISCUSS FREQUENCY OF MEDICATIONS.
--- NOTE | 2019-05-11 11:05 | NUR ---
SPOKE WITH PERNELL JOHNSON REGARDING THE RECOMMENDATIONS GIVEN BY HOSPICE NURSE. LEAD MINER BLASTING STATES THAT SHE WILL PLACE NEW ORDERS.
--- NOTE | 2019-05-11 11:21 | NUR ---
IN TO PT ROOM AT THIS TIME TO MEDICATE PT WITH ATIVAN AND MORPHINE SUBLINGUALLY. PT IN BED, EYES CLOSED. RESPIRATIONS 22, FAMILY AT BEDSIDE. PATIENT GIVEN MEDICATIONS AND ASSESSED AT THIS TIME. FAMILY ASKED TO PRESS CALL LIGHT FOR THIS NURSE IF PT RESPIRATIONS DO NOT DECREASE AFTER ADMINISTRATION OF MEDICATIONS. PLAN OF CARE AND MEDICATIONS DISCUSSED WITH FAMILY. PT HOB ELEVATED, SUPPLEMENTAL OXYGEN IN PLACE. CALL LIGHT IN REACH.
--- NOTE | 2019-05-11 11:55 | NUR ---
SPOKE WITH RESPIRATORY THERAPIST REGARDING PT RESPIRATIONS AND PULSE OX. BREATHING TREATMENT IS GIVEN AT THIS TIME.
--- NOTE | 2019-05-11 12:03 | NUR ---
Occupational Therapy referral received 05/10/19. Patient was since placed on inpatient Hospice. Discharge OT referral. Minda Milner OTR/jess
--- NOTE | 2019-05-11 12:08 | NUR ---
RESPIRATORY THERAPIST CALLS THIS NURSE TO PATIENT'S ROOM DUE TO LACK OF RESPIRATIONS, NO CHEST WALL MOVEMENT, AND NO HEARTBEAT UPON AUSCULTATION. PATIENT FOUND LYING IN BED, HOB ELEVATED, EYES CLOSED. 2 RNS VERIFIED THAT THERE IS NO HEARTBEAT UPON AUSCULTATION, ZERO RESPIRATIONS, NO PALPABLE PULSES, PUPILS FIXED AND DILATED. FAMILY PRESENT AT BEDSIDE AND NOTIFIED/AWARE OF PATIENT'S AT THIS TIME. WILL NOTIFY ALL APPROPRIATE PARTIES AND FOLLOW APPROPRIATE PROTOCOL AT THIS TIME.
--- NOTE | 2019-05-11 12:11 | NUR ---
[facility] CALLED. BODY NOT RELEASED AT THIS TIME. SPIOKE WITH BEN CASE #[id number].
--- NOTE | 2019-05-11 12:12 | NUR ---
PERNELL JOHNSON NOTIFIED OF , ALSO CALLED HOSPICE THEY ARE AWARE.
--- NOTE | 2019-05-11 12:13 | NUR ---
OIL RAG WASHER, NADER NOTIFIED OF PT'S .
--- NOTE | 2019-05-11 12:29 | NUR ---
ONE CALL CALLED BODY IS RELEASED TO GO TO HOME.
--- NOTE | 2019-05-11 13:15 | NUR ---
[facility] NOTIFIED THAT PT HAS AND THAT FAMILY WISHES FOR THEIR HOME TO PICK BODY UP AT THIS TIME. AP PROCESSOR STATES THAT THEY WILL BE AT FACILITY WITHIN 30 MINUTES. FAMILY NOTIFIED. FAMILY DENIES NEEDING ANYTHING ELSE AT THIS TIME.
--- NOTE | 2019-05-11 13:46 | NUR ---
PHYSICAL THERAPY Discharge physical therapy referral, Pt has been placed on hospice. Thank you Linda Gutierrez, PT, DPT
--- NOTE | 2019-05-11 14:16 | NUR ---
[facility] STAFF AT FACILITY AT THIS TIME TO MANAGER STERILE BODY.
--- NOTE | 2019-05-11 14:20 | NUR ---
BODY OF PT LEAVES FACILITY AT THIS TIME WITH HOME STAFF.
== END 2019-05-11 12:08 | disposition expired | DRG 871 ==
LOC: 5E 16:22
PROVIDERS: ADMIT Internal Medicine
PROC: 5A09357 Assistance with Respiratory Ventilation, Less than 24 Consecutive Hours, Continuous Positive Airway Pressure (ICD-10-PCS; principal; 2019-05-10)
DX: A41.9 Sepsis, unspecified organism (principal); N17.0 Acute kidney failure with tubular necrosis; J18.9 Pneumonia, unspecified organism; J96.01 Acute respiratory failure with hypoxia; E43 Unspecified severe protein-calorie malnutrition; C34.90 Malignant neoplasm of unspecified part of unspecified bronchus or lung; E87.2 Acidosis; J44.0 Chronic obstructive pulmonary disease with (acute) lower respiratory infection; J44.1 Chronic obstructive pulmonary disease with (acute) exacerbation; F17.210 Nicotine dependence, cigarettes, uncomplicated; R65.20 Severe sepsis without septic shock; Z66 Do not resuscitate; Z51.5 Encounter for palliative care; I10 Essential (primary) hypertension; D64.9 Anemia, unspecified; K21.9 Gastro-esophageal reflux disease without esophagitis; E11.65 Type 2 diabetes mellitus with hyperglycemia; E83.42 Hypomagnesemia; Z71.6 Tobacco abuse counseling; Z90.49 Acquired absence of other specified parts of digestive tract; Z90.710 Acquired absence of both cervix and uterus; Z82.49 Family history of ischemic heart disease and other diseases of the circulatory system; Z81.8 Family history of other mental and behavioral disorders; Z79.899 Other long term (current) drug therapy; Z68.29 Body mass index [BMI] 29.0-29.9, adult